=== PATIENT | male | born 1980 | race Caucasian/White ===

== ENCOUNTER 2021-12-10 01:09 | Emergency (ER) | payer OTHER, SELFPAY ==
[2021-12-10] VITALS (20 sets, daily range): BP systolic 93–123; BP diastolic 54–82; PULSE 57–90; RESP 16–26; TEMP 36.9–37.1; O2SAT 94–98; BMI 26.7
--- NOTE | 2021-12-10 01:14 | HMH.EDGENADL ---
Discharge Plan Disposition Patient Disposition: Xfer Psychiatric Hosp Condition: Fair Prescriptions Prescriptions: No Action olanzapine 10 mg Tablet 10 mg PO HS Clinical Impressions Clinical Impression: Deliberate medication overdose, Paranoid schizophrenia Discharge ED Provider: Cydney Santos Adult HPI General Chief complaint: Overdose Stated complaint: OD Time Seen by Provider: 12/10/21 01:12 Mode of Arrival: EMS Source of Information: Patient Limitations: No Limitations Description of Symptoms (Recalled from ER Triage Doc. by RN): Pt reports ingesting about 10 10mg olanzapine aprox 40 min ago. Pt denies thoughts of harming himself or others. He took the medication because he wanted the voices in my head to stop so I could go to sleep. Pt is plesent and cooperative at this time. No complaints other than he says he is starting to get a little sleepy. History of Present Illness HPI narrative: 41-year-old male presenting to the emergency department after medication ingestion. He has a history of bipolar disorder, schizophrenia. He takes 10 mg olanzapine once daily. For the past 4 to 5 days he has had increasing intrusive thoughts. Says he hears voices all of the time. They do not tell him to do things. They do not tell him to hurt himself. They do keep him up at night. He says he simply wanted to fall asleep tonight. Took 10 tablets of his 10 mg Zyprexa. He denies that this was an attempt to end his life or to harm himself. Says he simply needed to fall asleep. Denies coingestions with alcohol, other medications, other drugs. He has been hospitalized before for mental health. Says his medication just is not working for him at this time Related Data Home Medications Medication Instructions Recorded Confirmed olanzapine 10 mg tablet 10 mg PO HS Schizophrenia 12/10/21 12/10/21 Allergies Allergy/AdvReac Type Severity Reaction Status Date / Time No Known Allergies Allergy Unverified 02/03/17 15:16 [facility] Medical History (Updated 12/10/21 @ 03:14 by Cydney Santos DO) Bipolar 1 disorder Schizo affective schizophrenia Social History Smoking Status: Current every day smoker alcohol intake: never current occupational status: employed Travel in the last 8 weeks: None ROS Obtained: Yes All systems reviewed & no additional complaints except as documented Constitutional Constitutional: Denies fever(s) and Denies headache(s) Eyes Eyes: Denies blurry vision and Denies change in vision ENT Ears, Nose, Mouth, and Throat: Denies dizziness, Denies dry mouth and Denies headache(s) Cardiovascular Cardiovascular: Denies chest pain, Denies dyspnea and Denies palpitations Respiratory Respiratory: Denies cough and Denies dyspnea Gastrointestinal Gastrointestingal: Denies nausea or vomiting Musculoskeletal Musculoskeletal: Denies muscle weakness and Denies myalgias Integumentary/Breasts Skin/Breast: Denies redness and Denies rash Neurologic Neurologic: Denies dizziness and Denies headache(s) Endocrine Endocrine: Denies palpitations Physical Exam General General appearance: alert and in no apparent distress Head Head exam: atraumatic and normocephalic Eye Eye exam: Present normal appearance; Absent conjunctival redness ENT ENT exam: Present normal exam and normal oropharynx Respiratory Respiratory exam: Present normal lung sounds bilaterally; Absent respiratory distress or wheezes Cardiovascular Cardiovascular exam: Present regular rate and normal rhythm Abdominal Exam Abdominal exam: Present soft; Absent tenderness Neurological Exam Neurological exam: Present alert and oriented X3 Psychiatric Psychiatric exam: Present normal mood and flat affect Skin Skin exam: Present warm and dry Medical Decision Making Medical Records Medical records reviewed: Yes I reviewed the patient's medical records. [place] Inquiry Pt receiving controlled substance: No Vital Signs:
--- NOTE | 2021-12-10 01:17 | ECG_ITS ---
APPROVED REPORT Exam: Resting ECG HR:82 bpm ECG Measurements Heart Rate 82 AXES TX 140 P 53 QRSd 102 QRS 64 QT 360 T 48 QTc 398 Conclusion SINUS RHYTHM INCOMPLETE RIGHT BUNDLE BRANCH BLOCK [90+ ms QRS DURATION, TERMINAL R IN V1/V2, 40+ ms S IN I/aVL/V4/V5/V6] BORDERLINE ECG UNCONFIRMED REPORT Electronically signed by : Aguilar Morales MD 12/10/2021 20:03:05
--- NOTE | 2021-12-10 01:19 | PC.NURSE ---
Patient states that at approx 0000 patient took ten 10mg olanzapine. States that he took the medicine to quiet the voices in his head because he wanted to get some sleep but denies wanting to kill or hurt himself. At 0007 patients girlfriend (he and his girlfriend live in his mothers basement) ran upstairs and told his mother that he had taken his entire bottle of pills. Patients mother called poison control who recommended she call ems. I Called and spoke with Brooklynn at poison control upon patient arrival. Per Brooklynn, since it has been greater than 1 hour since he had ingested the pills, charcoal was not beneficial. She also recommended doing basic labs for overdose protocol including an aspirin and tylenol level. Advised to monitor patient for dizziness, tachycardia, nausea/vomiting and orthostatic hypotension for the next 6 hours.
--- NOTE | 2021-12-10 01:29 | PC.NURSE ---
Pt provided with warm blanket and pillow
[2021-12-10 01:58] LABS: Microscopic, Urine URINE MICROSCOPIC (MICROSCOPIC)
[2021-12-10 02:04] LABS: Coronavirus 19, PCR Not Detected (NotDetected); Influenza A, PCR Not Detected (NotDetected); Influenza B, PCR Not Detected (NotDetected)
[2021-12-10 02:04] LABS: Basophils # 0.1 K/mm3 (0-0.2); Basophils % 1.4 % (0.1-2.0); Eosinophils # 0.1 K/mm3 (0.0-0.4); Eosinophils % 2.1 % (0.1-12.0); Hematocrit 47.1 % (42.0-52.0); Hemoglobin 15.7 g/dL (14.1-18.0); Lymphocytes # 1.9 K/mm3 (0.7-4.5); Lymphocytes % 38.4 % (10-50); Mean Corpuscular HGB Conc 33.3 g/dL (31.8-35.4); Mean Corpuscular Hemoglobin 30.8 pg (27.0-31.2); Mean Corpuscular Volume 92.7 fl (80-94); Monocytes # 0.3 K/mm3 (0.1-1.0); Monocytes % 6.5 % (1.7-9.3); Neutrophils # 2.6 K/mm3 (1.8-7.8); Neutrophils % 51.6 % (37.0-80.0); Platelet Count 265 K/mm3 (142-424); Red Blood Count 5.08 M/mm3 (4.60-6.20); Red Cell Distribution Width 15.2 % (11.5-17.5)
[2021-12-10 02:07] LABS: Appearance,Urine CLEAR (Clear); Bilirubin,Urine Negative (Negative); Blood, Urine TRACE-L (Negative); Color,Urine YELLOW (Yellow); Glucose,Urine (UA) Negative (Negative); Ketones,Urine Negative (Negative); Leukocyte Esterase,Urine Negative (Negative); Nitrate,Urine Negative (Negative); Protein,Urine Negative (Negative); Urobilinogen,Urine 0.2 EU/dl (0.2)
[2021-12-10 02:09] LABS: Acetaminophen < 10 ug/ml (10-30); Alanine Aminotransferase 18 U/L (12-78); Albumin Level 3.9 g/dl (3.5-5.0); Albumin/Globulin Ratio 1.1 (1.1-1.8); Alkaline Phosphatase 120 U/L (38-126); Anion Gap 13.9 mEq/L (5-15); Aspartate Amino Transferase 28 U/L (17-59); Bilirubin,Total 0.3 mg/dl (0.2-1.3); Blood Urea Nitrogen 12 mg/dl (9-20); Calcium 8.7 mg/dl (8.4-10.2); Carbon Dioxide 26 mmol/L (22.0-30.0); Chloride 103 mmol/L (98-107); Creatinine Clearance Estimated 154 mL/min (50-200); Estimated Glomerular Filt Rate 93 ml/min (>60); GFR (African American) 113 ML/MIN (>60); Globulin 3.5 g/dL (1.3-3.2); Glucose 125 mg/dl (74-100); Potassium 3.9 mmoL/L (3.5-5.1); Salicylate < 1.0 mg/dL (2.0-20.0); Sodium 139 mmol/L (136-145); Total Protein,Serum 7.4 g/dl (6.3-8.2)
[2021-12-10 02:10] LABS: Ethyl Alcohol < 10 mg/dl (0-10)
--- NOTE | 2021-12-10 02:30 | PC.NURSE ---
Pt continues to sleep. No needs or complaints voiced. Call light within reach.
[2021-12-10 02:33] LABS: WBC,Urine Occasional #/hpf (0-3)
[2021-12-10 02:34] LABS: Bacteria,Urine 1+ /lpf
[2021-12-10 02:48] LABS: Barbiturates Screen,Urine Negative ng/ml (<200)
[2021-12-10 02:49] LABS: Benzodiazepines Screen,Urine Negative ng/ml (<200)
[2021-12-10 02:50] LABS: Cocaine Screen,Urine Negative ng/ml (<300)
[2021-12-10 02:51] LABS: Cannabinoid Screen,Urine Negative ng/ml (<50); Methadone Screen,Urine Negative ng/ml (<300)
[2021-12-10 02:53] LABS: Opiate Screen,Urine Negative ng/ml (<300); Phencyclidine Screen,Urine Negative ng/ml (<25)
--- NOTE | 2021-12-10 03:52 | PC.NURSE ---
Spoke with Brooklynn with poison control to update her on patients condition. Patient is currently sleeping. Does not complain of any pain. Patient has not had any seizures while here and has remained hemodynamically stable. Will continue to monitor patient.
--- NOTE | 2021-12-10 04:12 | PC.NURSE ---
Breakfast tray request submitted
--- NOTE | 2021-12-10 05:14 | PC.NURSE ---
Pt sleeping comfortably at this time
--- NOTE | 2021-12-10 06:34 | PC.NURSE ---
Pt continues to rest in bed comfortably
--- NOTE | 2021-12-10 06:59 | PC.NURSE ---
Breakfast tray provided
--- NOTE | 2021-12-10 08:08 | PC.NURSE ---
called [facility] intake states they will have a nurse call for pt eval
--- NOTE | 2021-12-10 08:13 | PC.NURSE ---
spoke with sharon at [facility] that reports if pt is voluntary, he can present to their facility for eval.
--- NOTE | 2021-12-10 08:25 | PC.NURSE ---
called care management to arrange transport for pt
--- NOTE | 2021-12-10 08:35 | PC.NURSE ---
care management recommends psych consult. states they are unable to find transport for pt.
--- NOTE | 2021-12-10 08:37 | PC.NURSE ---
spoke with prasanna in who states she will let vielka know about consult
--- NOTE | 2021-12-10 08:42 | PC.NURSE ---
Poison Control called and was updated on pt condition.
--- NOTE | 2021-12-10 09:15 | PC.NURSE ---
spoke with pt's mother who states she will transport pt to [facility]
--- NOTE | 2021-12-10 10:35 | PC.NURSE ---
awaiting pick pt for pt d/c. pt updated on POC. resting at this time
[2021-12-16 09:11] LABS: Amphetamine Positive (.); Amphetamine (GC/MS) 2223 ng/mL (Cutoff=500); Amphetamines Positive (.); Methamphetamine Positive (.); Methamphetamine (GC/MS) >3000 ng/mL (Cutoff=500)
== END 2021-12-10 12:03 ==
PROVIDERS: Emergency Provider Emergency Medicine
DX: T43.591A Poisoning by other antipsychotics and neuroleptics, accidental (unintentional), initial encounter (principal); F06.2 Psychotic disorder with delusions due to known physiological condition; F20.89 Other schizophrenia
CPT/HCPCS: 80053; 80305; 80324; 80329; 81001; 85025; 93005; 99283; C9803; U0003; U0005

== ENCOUNTER → 2022-02-14 13:03 | Outpatient (CLI) | payer OTHER, SELFPAY ==
[2022-02-14 18:58] LABS: Alanine Aminotransferase 21 U/L (12-78); Albumin Level 4.8 g/dl (3.5-5.0); Albumin/Globulin Ratio 1.5 (1.1-1.8); Alkaline Phosphatase 92 U/L (38-126); Anion Gap 13.7 mEq/L (5-15); Aspartate Amino Transferase 29 U/L (17-59); Bilirubin,Total 0.7 mg/dl (0.2-1.3); Blood Urea Nitrogen 19 mg/dl (9-20); Calcium 9.4 mg/dl (8.4-10.2); Carbon Dioxide 24 mmol/L (22.0-30.0); Chloride 108 mmol/L (98-107); Estimated Glomerular Filt Rate 83 ml/min (>60); GFR (African American) 100 ML/MIN (>60); Globulin 3.3 g/dL (1.3-3.2); Glucose 88 mg/dl (74-100); Potassium 4.7 mmoL/L (3.5-5.1); Sodium 141 mmol/L (136-145); Total Protein,Serum 8.1 g/dl (6.3-8.2)
[2022-02-14 19:29] LABS: Thyroid Stimulating Hormone 1.11 uIU/mL (0.465-4.68)
[2022-02-14 19:32] LABS: Basophils # 0.1 K/mm3 (0-0.2); Eosinophils # 0.1 K/mm3 (0.0-0.4); Eosinophils % 1.5 % (0.1-12.0); Hematocrit 49.2 % (42.0-52.0); Hemoglobin 16.6 g/dL (14.1-18.0); Lymphocytes # 1.8 K/mm3 (0.7-4.5); Lymphocytes % 38.1 % (10-50); Mean Corpuscular HGB Conc 33.7 g/dL (31.8-35.4); Mean Corpuscular Hemoglobin 31.1 pg (27.0-31.2); Mean Corpuscular Volume 92.2 fl (80-94); Mean Platelet Volume 8.7 fl (7.4-10.4); Monocytes # 0.4 K/mm3 (0.1-1.0); Monocytes % 8.2 % (1.7-9.3); Neutrophils # 2.5 K/mm3 (1.8-7.8); Neutrophils % 51.2 % (37.0-80.0); Platelet Count 296 K/mm3 (142-424); Red Blood Count 5.33 M/mm3 (4.60-6.20); White Blood Count 4.8 K/mm3 (4.8-10.8)
[2022-02-14 19:48] LABS: Vitamin B12 395 pg/mL (239-931)
== END ==
PROVIDERS: PCP Family Medicine; Visit Provider Family Medicine
DX: F20.0 Paranoid schizophrenia (principal)
CPT/HCPCS: 80053; 82607; 84443; 85025

== ENCOUNTER 2023-11-26 17:35 | Emergency (ER) | payer BC, SELFPAY ==
[2023-11-26 17:36] VITALS: BP 133/102; PULSE 114; RESP 18; TEMP 36.8; O2SAT 97; BMI 34.0
--- NOTE | 2023-11-26 17:39 | HMH.EDGENADL ---
Discharge Plan Disposition Patient Disposition: Eloped Chief Complaint: Psychiatric Symptoms Prescriptions Prescriptions: No Action risperidone 2 mg tablet 2 mg PO BID Qty: 180 2RF divalproex 250 mg tablet,delayed release (DR/EC) See Rx Instructions .ROUTE .COMPLEX Qty: 180 1RF Dose Instruction: TAKE 1 TABLET BY MOUTH TWICE A DAY Rx Instructions: TAKE 1 TABLET BY MOUTH TWICE A DAY divalproex 500 mg tablet,delayed release (DR/EC) See Rx Instructions .ROUTE .COMPLEX Qty: 180 1RF Dose Instruction: TAKE 1 TABLET BY MOUTH TWICE A DAY FOR SCHIZOPHRENIA Rx Instructions: TAKE 1 TABLET BY MOUTH TWICE A DAY FOR SCHIZOPHRENIA Referrals Follow up/Referrals: Kaelyn Tobar MD [Primary Care Provider] - See instructions Clinical Impressions Clinical Impression: Paranoid schizophrenia Print Language Print Language: Maltese Discharge ED Provider: Hiram Maynard General Adult HPI General Chief complaint: Psychiatric Symptoms Stated complaint: hearing voices Time Seen by Provider: 11/26/23 17:39 History of Present Illness HPI narrative: Aguilar Zimmerman is a 43y male with a history of schizophrenia who presents to the emergency department for complaints of hearing voices and is requesting a scan because he is concerned that he has been microchipped. Patient states that he lost his job and lost his insurance approximately 1 month ago and has been out of all of his psychiatric medications. He is unsure exactly what he takes, but notes that he takes risperidone. He states that recently, he feels that someone has microchip him and he has been hearing voices. He states that these voices are often times people that he knows. He denies any suicidal ideation or homicidal ideation. He is requesting scans to evaluate for a microchip. Mother at the bedside, whom he lives with, notes that he had a stay at [facility] and was put on medication at that time that seemed to help his agitation associated with his schizophrenia. Patient is adamant that he does not want to go to [facility] and is only here for a scan to evaluate for the microchip. He does not want any lab work or urine studies performed. He is alert and oriented x 3. He denies alcohol use and occasionally admits to smoking marijuana, however has not used in some time. Related Data Previous Rx's ?Medication ?Instructions ?Recorded risperidone 2 mg tablet 2 mg PO BID #180 tabs 11/07/22 divalproex 250 mg tablet,delayed See Rx Instructions .Route 11/10/22 release .COMPLEX #180 tabs divalproex 500 mg tablet,delayed See Rx Instructions .Route 11/10/22 release .COMPLEX #180 tabs Allergies Allergy/AdvReac Type Severity Reaction Status Date / Time No Known Allergies Allergy Unverified 02/14/22 11:45 [facility] Disclaimer: The information contained in this section may have been updated after the patient was seen, as this information can be updated by other users. Medical History (Updated 11/26/23 @ 18:20 by Hiram Maynard MD) Left ankle effusion Schizo affective schizophrenia Bipolar 1 disorder Surgical History (Updated 02/14/22 @ 11:59 by MELODY Harris) History of left hip replacement Social History Smoking Status: Current every day smoker alcohol intake: never current occupational status: employed Travel in the last 8 weeks: None ROS Obtained: Yes Systems reviewed as appropriate & no additional complaints except as documented Physical Exam General General appearance: alert and in no apparent distress Head Head exam: atraumatic Eye Eye exam: Present normal appearance ENT ENT exam: Present normal external ear exam Neck Neck exam: Present full ROM Chest Chest inspection: Present symmetric chest wall rise Respiratory Respiratory exam: Present normal lung sounds bilaterally; Absent respiratory distress Cardiovascular Cardiovascular exam: Present normal rhythm and tachycardia Abdominal Exam Abdominal exam: Present soft; Absent tenderness or guarding exam: Present deferred Extremities Exam Extremities exam: Present normal inspection Back Exam Back exam: Present normal inspection Neurological Exam Neurological exam: Present alert and oriented X3 Psychiatric Psychiatric exam: Present agitated and anxious; Absent homicidal ideation or suicidal ideation Expanded Psychiatric Exam Expanded psych exam: Present paranoid and auditory hallucinations Skin Skin exam: Present warm and dry Medical Decision Making Medical Records Medical records reviewed: Yes I reviewed the patient's medical records. Screening: Per USPSTF and CDC recommendations, given the prevalence of disease in our region, it is our hospital?s policy to screen for HIV and viral Hepatitis for all patients aged 18 and over and those with ongoing risk factors. [place] Inquiry Pt receiving controlled substance: No Vital Signs: 11/26/23 17:36 Temperature 98.2 F Temperature Source Oral Pulse Rate [Radial] 114 H Respiratory Rate 18 Blood Pressure [Right Arm] 133/102 H Blood Pressure Mean [Right Arm] 112 Blood Pressure Source [Right Arm] Automatic Cuff Blood Pressure Position [Right Arm] Sitting 02 Sat by Pulse Oximetry 97 Oxygen Delivery Method Room Air Orders (Tests/Meds): ORDERS Category Date Time Status HIV (1&2) Antibody Rapid Stat Lab 11/26/23 17:57 Ordered Hep C Ab with Reflex to RNA Stat Lab 11/26/23 17:57 Ordered Medical Decision Narrative: This is a 43-year-old male with longstanding schizophrenia who, on chart review, was last seen by Dr. Tobar in 2021 and was prescribed risperidone and Dalproex, who presents to the emergency department for complaints of auditory hallucinations and concerns that he has microchip. Patient notes that he lost his job approximately 1 month ago and lost his insurance as a result. Since then, has not had any of his psychiatric medications and has not seen a physician in some time. He notes that he had a stay at [facility] in the past and was prescribed these medications that seem to help. His mother at the bedside notes improvement in his symptoms at that time as well. Patient is alert and oriented x 3, not responding to internal stimuli, denying suicidal ideation or homicidal ideation, afebrile, mildly tachycardic but is agitated and is demanding a scan to evaluate for microchips. Given that the patient is completely alert and oriented and answering questions appropriately without suicidal ideation or homicidal ideation, the patient has medical decision-making capacity for himself and does not qualify for a 72-hour hold at this time. He is refusing all lab work and urine studies at this time. It was discussed with him that there is no indication for scan at this time based on his symptomatology, vital signs, which are most consistent with his longstanding schizophrenia. Is felt that he would benefit from getting back on his medications, which previously controlled his symptoms well according to family. He was given a Medicaid application upon arrival to the emergency department, which should help with the cost aspect. When offered inpatient stay at [facility], patient stated I will not be going there and subsequently left the emergency department. The risks of leaving the emergency department prior to completion of his workup/transfer to [facility] were not able to be discussed with the patient prior to his exit from the emergency department and the patient eloped as a result. Critical Care Critical Care Time Critical Care Time: No
--- NOTE | 2023-11-26 17:53 | PC.NURSE ---
DR URIARTE AT BEDSIDE
--- NOTE | 2023-11-26 17:57 | PC.NURSE ---
PT REFUSING LABS AND EKG DEMANDING A SCAN OR HE WILL LEAVE
--- NOTE | 2023-11-26 18:02 | PC.NURSE ---
MOTHER AT BEDSIDE ALONG WITH DR URIARTE
[2023-11-26 18:09] VITALS: BP 133/102; PULSE 110; RESP 18; TEMP 36.8; O2SAT 97
== END 2023-11-26 18:09 | disposition left against medical advice (07) ==
PROVIDERS: Emergency Provider Student in an Organized Health Care Education/Training Program; PCP Family Medicine
DX: F20.0 Paranoid schizophrenia (principal); F09 Unspecified mental disorder due to known physiological condition; Z53.21 Procedure and treatment not carried out due to patient leaving prior to being seen by health care provider
CPT/HCPCS: 99281

== ENCOUNTER 2023-12-23 11:28 | Outpatient (CLI) | payer BC, SELFPAY ==
--- NOTE | 2023-12-23 11:33 | CT_ITS ---
FINAL REPORT CLINICAL HISTORY: abdominal hernia COMPARISON: None FINDINGS: CT OF THE ABDOMEN AND PELVIS WITH CONTRAST Axial CT images of the abdomen and pelvis were obtained after the administration of IV contrast. Coronal reformatted images were also obtained and reviewed.This study was performed with techniques to keep radiation doses as low as reasonably achievable (ALARA). Individualized dose reduction techniques using automated exposure control or adjustment of mA and/or kV according to the patient''s size were employed. Abdomen: There is mild atelectasis or scarring in the lung bases. The heart is normal in size. The liver has an unremarkable appearance, without evidence of mass or biliary ductal dilatation. There is mild nonspecific gallbladder wall thickening. The spleen is unremarkable. No adrenal mass is present. The pancreas has an unremarkable appearance. The kidneys are normal, without evidence of mass or hydronephrosis. The aorta is normal in caliber. There is no free fluid or adenopathy. No mass or abnormal fluid collection is seen. A supraumbilical midline ventral hernia is noted containing nonobstructed small bowel loops. The hernia orifice measures 39 mm in transverse dimension in the hernia sac measures 66 mm in transverse dimension. Pelvis: The appendix is normal. The urinary bladder is unremarkable. No inflammatory process is seen. There is no evidence of mass or adenopathy. There is no evidence of bowel obstruction. Postoperative changes from left hip arthroplasty. IMPRESSION: Supraumbilical midline ventral hernia containing nonobstructive small bowel loops. Reviewed, Interpreted and Dictated by Winston Cleaning III, MD Transcribed by Barbara Mcclellan Authenticated and [facility]
[2023-12-23] MEDS: SODIUM CHLORIDE 0.9% 10ML SYR (RAD ONLY) 10 ML IV (12:29)
[2023-12-23] MEDS: IOPAMIDOL-370 (76%);100ML BOTTLE 75 ML IV (12:30)
== END 2023-12-23 23:59 | disposition home or self-care (01) ==
LOC: RAD 11:29
PROVIDERS: PCP Family Medicine; Visit Provider Nurse Practitioner
DX: K43.9 Ventral hernia without obstruction or gangrene (principal)
CPT/HCPCS: 74177; Q9967

== ENCOUNTER 2024-01-15 12:12 | Outpatient (CLI) | payer BC, SELFPAY ==
[2024-01-15 12:34] VITALS: BMI 34.7
[2024-01-15 12:52] LABS: Basophils % 0.6 % (0.1-2.0); Eosinophils # 0.1 K/mm3 (0.0-0.4); Eosinophils % 1.4 % (0.1-12.0); Hematocrit 41.8 % (42.0-52.0); Hemoglobin 14.7 g/dL (14.1-18.0); Lymphocytes # 1.6 K/mm3 (0.7-4.5); Lymphocytes % 33.8 % (10-50); Mean Corpuscular HGB Conc 35.3 g/dL (31.8-35.4); Mean Corpuscular Hemoglobin 32.2 pg (27.0-31.2); Mean Corpuscular Volume 91.4 fl (80-94); Mean Platelet Volume 7.8 fl (7.4-10.4); Monocytes # 0.3 K/mm3 (0.1-1.0); Monocytes % 7.2 % (1.7-9.3); Neutrophils # 2.6 K/mm3 (1.8-7.8); Neutrophils % 57.1 % (37.0-80.0); Platelet Count 242 K/mm3 (142-424); Red Blood Count 4.57 M/mm3 (4.60-6.20); Red Cell Distribution Width 13.8 % (11.5-17.5); White Blood Count 4.6 K/mm3 (4.8-10.8)
[2024-01-15 12:58] LABS: Microscopic, Urine URINE MICROSCOPIC (MICROSCOPIC)
[2024-01-15 13:13] LABS: Appearance,Urine CLEAR (Clear); Bilirubin,Urine Negative (Negative); Blood, Urine Negative (Negative); Color,Urine YELLOW (Yellow); Glucose,Urine (UA) Negative (Negative); Ketones,Urine Negative (Negative); Leukocyte Esterase,Urine Negative (Negative); Nitrate,Urine Negative (Negative); PH,Urine 6.5 (5.0-8.5); Protein,Urine Negative (Negative); Specific Gravity, Urine 1.025 (1.005-1.030); Urobilinogen,Urine 0.2 EU/dl (0.2)
[2024-01-15 13:15] LABS: Anion Gap 9.9 mEq/L (5-15); Blood Urea Nitrogen 13 mg/dl (9-20); Calcium 9.2 mg/dl (8.4-10.2); Carbon Dioxide 23 mmol/L (22.0-30.0); Chloride 107 mmol/L (98-107); Creatinine Clearance Estimated 176 mL/min (50-200); Estimated Glomerular Filt Rate 82 ml/min (>60); GFR (African American) 99 ML/MIN (>60); Glucose 111 mg/dl (74-100); Potassium 3.9 mmoL/L (3.5-5.1); Sodium 136 mmol/L (136-145)
[2024-01-15 13:21] LABS: Squamous Epithelial Cell,Urine Occasional #/hpf (0-5); WBC,Urine Occasional #/hpf (0-3)
--- NOTE | 2024-01-15 13:46 | ECG_ITS ---
APPROVED REPORT Exam: Resting ECG HR:86 bpm ECG Measurements Heart Rate 86 AXES VA 161 P 42 QRSd 109 QRS 26 QT 344 T 56 QTc 388 Conclusion SINUS RHYTHM NORMAL ECG UNCONFIRMED REPORT Electronically signed by : Aguilar Morales MD 01/17/2024 11:18:16
== END 2024-01-15 23:59 | disposition home or self-care (01) ==
LOC: PREOP 12:13
PROVIDERS: PCP Family Medicine; Visit Provider Surgery
DX: Z01.810 Encounter for preprocedural cardiovascular examination (principal)
CPT/HCPCS: 80048; 81001; 85025; 93005

== ENCOUNTER 2024-01-21 07:58 | Day surgery (SDC) | payer BC, SELFPAY ==
[2024-01-15 12:33] VITALS: BMI 34.7
[2024-01-21] VITALS (12 sets, daily range): BP systolic 108–143; BP diastolic 61–94; PULSE 70–98; RESP 16–18; TEMP 36.1–43; O2SAT 93–96
[2024-01-21] MEDS: 0.9 % SODIUM CHLORIDE 1000ML 1,000 ML 25 ML IV (08:13)
--- NOTE | 2024-01-21 08:27 | P.PNANES_ITS ---
[facility] Disclaimer: The information contained in this section may have been updated after the patient was seen, as this information can be updated by other users. Medical History Ventral hernia Supraumbilical defect with indistinct margin Left ankle effusion Schizo affective schizophrenia Bipolar 1 disorder Surgical History History of left hip replacement Social History Smoking Status: Current every day smoker alcohol intake: never substance use type: former substance user and methamphetamine current occupational status: employed Travel in the last 8 weeks: None [facility] Anesthesia Checklist Patient Identification Patient Identification: Arm Band and Verbal (Name & ) Structural Data Admitted From: Home Planned Operative Procedure/s: Lap. VHR Consent for Planned Operative Procedure(s) Verified: Yes Verified Documents: Surgical Consent and History and Physical NPO Status Verified Time NPO: 23:00 Chart Verification Results Verified: CBC, BMP and ECG Additional verifications Patient : No Anesthesia Reactions: No Hx Blood Transfusions: No Blood Transfusion Reaction: No Cardiovascular Assessment Heart Sounds: S1 & S2 Pulse Rhythm: Irregular Peripheral Edema: No Airway Assessment Mallampati Score:: Class II C-Spine Mobility Assessed: Yes (FROM) TMJ Mobility Assessed: Yes Dentition: Good Dentition (Nothing loose per pt.) Neurological Assessment Level of Consciousness: Awake, Alert, Appropriate and Follows Commands Hx Seizures: No Numbness or tingling in extremities: No Anesthesia Plan Anesthesia Risk discussed: Yes Anesthesia Plan: Verified ASA Class: III Anesthesia Type: General
[2024-01-21] MEDS: CEFAZOLIN SODIUM 2 GM in 0.9 % SODIUM CHLORIDE 100 ML IV (08:50)
[2024-01-21] MEDS: LIDOCAINE 1% 20ML MDV 20 ML (08:59)
--- NOTE | 2024-01-21 10:28 | P.OP_ITS ---
Date of procedure: 01/21/24 Pre-op Diagnosis:: Ventral supraumbilical hernia (4 cm) Post-op Diagnosis:: Same Procedure performed:: Laparoscopic-assisted open repair of ventral hernia (4 cm) utilizing Ventralex mesh Surgeon:: Kenneth Connor MD [employer]SEL[employer]:: Kaila Fergusonnoemy Anesthesia: GETA Estimated blood loss (mL): 15 Operative findings:: 4 cm defect 8 cm Ventralex mesh secured in underlay fashion Primary repair with 0 Ethibond completed over the Ventralex mesh Operative note:: After informed consent was obtained the patient was taken to the operating room and placed in the supine position. General anesthesia was induced and his abdomen was prepped and draped in a sterile fashion. After infiltration with local anesthetic a Veress needle was placed in the left upper quadrant. The abdomen was insufflated. A 5 mm trocar was utilized to enter the left mid flank. Visualization revealed a supraumbilical defect 4 cm in diameter with no incarcerated contents. An incision overlying the defect was completed with sc alpel. The underlying hernia sac was freed from surrounding tissue and transected with electrocautery. The hernia sac was passed off for pathologic evaluation. An 8 cm Ventralex mesh was secured in an underlay fashion to the margin of the hernia. The margin of the Ventralex was then secured with OPTi fix tacks. An additional 5 mm trocar was placed in the left upper quadrant and an additional 5 mm trocar was placed along the right flank to facilitate placement of the tacks. Pneumoperitoneum was released. The fascia was then reapproximated to complete a primary repair with interrupted 0 Ethibond. All wounds were irrigated and skin was reapproximated with 4-0 Monocryl in an interrupted mattress fashion to facilitate hemostasis. Dressings were applied and the patient was transferred to recovery in stable condition after extubation. Condition: stable Disposition: PACU Specimens:: Ventral hernia sac Complications:: No immediate
--- NOTE | 2024-01-21 10:40 | EXP.ANES.I ---
[facility] Anesthesia Record Part I Anesthesia Record I Intake, IV Amount: 1,500 Hydration: Adequate Estimated blood loss (mL): 25 Urine output (mL): 0 Blood Products used (#): none Blood Pressure: 135/88 SaO2: 93 Pulse Rate: 83 Airway Patency: Patent Respiratory Rate: 16 Temperature: 97.1 F Patient is:: Awake (Talking), Drowsy and Stable Stable to PACU at:: 10:38
[2024-01-21] MEDS: MEPERIDINE 25MG/ML 1ML SYRINGE 25 MG IV (10:45)
[2024-01-21] MEDS: MORPHINE 2MG/ML SYRINGE 2 MG IV ×2 (10:47→11:02)
[2024-01-21] MEDS: OXYCODONE 5MG W/APAP 325MG TABLET 1 EACH (11:33)
--- NOTE | 2024-01-21 12:55 | EXP.ANES.II ---
[facility] Anesthesia Record Part II Anesthesia Record Part II Discharge Time: 11:07 Destination: Surgical Day Care (OP Surgery) PACU nurse assessment reviewed?: Yes Patient Condition:: Good Anesthesia Complications:: None Swallowing reflex intact?: Yes Airway Patency: Patent Cyanosis?: No Blood Pressure: 140/84 SaO2: 95 Respiratory Rate: 16 Pulse Rate: 70 Temperature: 97.2 F Mental Status: Alert & Oriented Pain level:: 0 Nausea and/or vomitting:: None Intake, IV Amount: 0 Hydration: Adequate
== END 2024-01-21 11:40 | disposition home or self-care (01) ==
PROVIDERS: PCP Family Medicine; Visit Provider Surgery
PROC: (CPT 49593; principal; 2024-01-21 09:15)
DX: K43.9 Ventral hernia without obstruction or gangrene (principal)
CPT/HCPCS: 49593; 96374; J3490; C1781; J0690; J1100; J1790; J1885; J2175; J2250; J2270; J3010; J7030

== ENCOUNTER 2024-03-08 12:00 | Outpatient (CLI) | payer OTHER, SELFPAY ==
[2024-03-08 18:46] LABS: Alanine Aminotransferase 29 U/L (12-78); Albumin Level 4.4 g/dl (3.5-5.0); Albumin/Globulin Ratio 1.4 (1.1-1.8); Alkaline Phosphatase 89 U/L (38-126); Anion Gap 15.1 mEq/L (5-15); Aspartate Amino Transferase 27 U/L (17-59); Bilirubin,Total 0.2 mg/dl (0.2-1.3); Blood Urea Nitrogen 14 mg/dl (9-20); Calcium 9.8 mg/dl (8.4-10.2); Carbon Dioxide 24 mmol/L (22.0-30.0); Chloride 103 mmol/L (98-107); Chol/HDL Ratio 5.9 (1-3.5); Cholesterol 217 mg/dl (140-200); Estimated Glomerular Filt Rate 82 ml/min (>60); GFR (African American) 99 ML/MIN (>60); Globulin 3.2 g/dL (1.3-3.2); Glucose 89 mg/dl (74-100); HDL Cholesterol 37 mg/dl (40-60); Potassium 4.1 mmoL/L (3.5-5.1); Sodium 138 mmol/L (136-145); Total Protein,Serum 7.6 g/dl (6.3-8.2); Triglycerides 170 mg/dl (30-150); VLDL Cholesterol 34 mg/dL (0-40)
[2024-03-08 18:58] LABS: Direct LDL Cholesterol 154.71 mg/dL (100-129)
[2024-03-08 19:04] LABS: T4 (Thyroxine) 10.4 ug/dl (5.53-11.0)
[2024-03-08 19:05] LABS: Hemoglobin A1C 5.6 % (4.0-6.0)
[2024-03-08 19:17] LABS: Thyroid Stimulating Hormone 2.35 uIU/mL (0.465-4.68)
== END 2024-03-08 23:59 | disposition home or self-care (01) ==
LOC: LAB.DROPOF 03-09 12:45
PROVIDERS: PCP Nurse Practitioner Acute Care; Visit Provider Nurse Practitioner Acute Care
DX: Z00.00 Encounter for general adult medical examination without abnormal findings (principal); I10 Essential (primary) hypertension; F20.0 Paranoid schizophrenia; R53.83 Other fatigue; E11.8 Type 2 diabetes mellitus with unspecified complications
CPT/HCPCS: 80053; 80061; 83036; 84436; 84443

== ENCOUNTER 2024-03-16 15:23 | Emergency (ER) | payer OTHER, SELFPAY ==
[2024-03-16 15:25] VITALS: BP 132/89; PULSE 97; RESP 16; TEMP 36.6; O2SAT 99; BMI 34.0
--- NOTE | 2024-03-16 15:27 | ED_ITS ---
Discharge Plan Disposition Patient Disposition: Home, Self-Care Condition: Good Prescriptions Prescriptions: No Action divalproex 250 mg tablet,delayed release (DR/EC) See Rx Instructions .ROUTE .COMPLEX Qty: 180 1RF Dose Instruction: TAKE 1 TABLET BY MOUTH TWICE A DAY Rx Instructions: TAKE 1 TABLET BY MOUTH TWICE A DAY divalproex 500 mg tablet,delayed release (DR/EC) See Rx Instructions .ROUTE .COMPLEX Qty: 180 1RF Dose Instruction: TAKE 1 TABLET BY MOUTH TWICE A DAY FOR SCHIZOPHRENIA Rx Instructions: TAKE 1 TABLET BY MOUTH TWICE A DAY FOR SCHIZOPHRENIA risperidone 2 mg tablet 2 mg PO BID Qty: 180 2RF olanzapine [Zyprexa Zydis] 5 mg tablet,disintegrating 5 mg PO DAILY Qty: 30 2RF Referrals Follow up/Referrals: Nicholas Tobar MD [Primary Care Provider] - See instructions Activity Restrictions/Add. Instructions Additional Instructions/Restrictions: Please call and follow-up with my eye doctor within 48 hours or any eye doctor of your choice within 48 hours to reevaluate your vision and the foreign body site in the left cornea. Utilize the ointment that I gave you which is erythromycin twice a day. Clinical Impressions Clinical Impression: Acute foreign body of left cornea Qualifiers: Encounter type: initial encounter Qualified Code(s): T15.02XA - Foreign body in cornea, left eye, initial encounter Instructions Patient Instructions: DI for Corneal Abrasion Print Language Print Language: [place] Discharge ED Provider: Hiram Maynard Adult HPI <ASIA Kirk - Last Filed: 03/16/24 21:30> General Chief complaint: Eye Problems Stated complaint: left eye pain , object in eye Time Seen by Provider: 03/16/24 15:26 History of Present Illness HPI narrative: Patient presents for a left eye injury. Patient states he was cutting wood on Thursday and felt like he got something in his eye. He is attempted to wash it out several times but the sensation persist. He denies loss of vision but hurts that it feels like it is scratching every time he blinks. Related Data Previous Rx's ?Medication ?Instructions ?Recorded divalproex 250 mg tablet,delayed See Rx Instructions .Route 12/08/23 release .COMPLEX #180 tabs divalproex 500 mg tablet,delayed See Rx Instructions .Route 10/22/24 release .COMPLEX #180 tabs risperidone 2 mg tablet 2 mg PO BID #180 tabs 12/08/23 olanzapine 5 mg disintegrating 5 mg PO DAILY #30 tabs 03/08/24 tablet (Zyprexa Zydis) Allergies Allergy/AdvReac Type Severity Reaction Status Date / Time No Known Allergies Allergy Verified 03/08/24 11:35 PFSH <ASIA Kirk - Last Filed: 03/16/24 21:30> PFS Disclaimer: The information contained in this section may have been updated after the patient was seen, as this information can be updated by other users. Medical History (Updated 03/16/24 @ 15:50 by ASIA Kirk) Ventral hernia Left ankle effusion Schizo affective schizophrenia Bipolar 1 disorder Surgical History H/O hernia repair History of left hip replacement Social History (Updated 03/16/24 @ 15:38 by Carla Henderson RN) Smoking Status: Current every day smoker alcohol intake: never substance use type: former substance user and methamphetamine current occupational status: employed Travel in the last 8 weeks: None Have you lived/traveled outside [place] in past 30 days?: No Contact w/someone who lives/traveled outside [place] past 30 days?: No Exposure to someone with infectious disease in past 14 days?: No Do you have a fever (greater than 100.4 F or 38 C)?: No Have you tested positive for COVID-19: No Exposed to someone with COVID-19 in past 14 days?: No Do you have a sore throat?: No Do you have a cough?: No Do you have any weakness?: No Are you experiencing any nausea/vomitting?: No Do you have any diarrhea?: No Are you experiencing any unusual bleeding?: No Do you have any muscle aches/pain?: No Do you have any abdominal pain?: No Are you experiencing loss of taste or smell?: No Other Medical History Have you received the Pneumonia Vaccine: No <ASIA Kirk - Last Filed: 03/16/24 21:30> ROS Obtained: Yes Systems reviewed as appropriate & no additional complaints except as documented Physical Exam <ASIA Kirk - Last Filed: 03/16/24 21:30> General General appearance: alert and in no apparent distress Respiratory Respiratory exam: Present normal lung sounds bilaterally Cardiovascular Cardiovascular exam: Present regular rate Neurological Exam Neurological exam: Present alert, oriented X3 and CN II-XII intact Medical Decision Making <ASIA Kirk - Last Filed: 03/16/24 21:30> Medical Records Screening: Per USPSTF and CDC recommendations, given the prevalence of disease in our region, it is our hospital?s policy to screen for HIV and viral Hepatitis for all patients aged 18 and over and those with ongoing risk factors. [place] Inquiry Pt receiving controlled substance: No Vital Signs: 03/16/24 15:25 03/16/24 15:57 Temperature 97.9 F 98.2 F Temperature Source Oral Pulse Rate 70 Pulse Rate [Radial] 97 H Respiratory Rate 16 20 Blood Pressure 132/89 Blood Pressure [Right Arm] 132/89 Blood Pressure Mean [Right Arm] 103 Blood Pressure Source [Right Arm] Automatic Cuff Blood Pressure Position [Right Arm] Sitting 02 Sat by Pulse Oximetry 99 Oxygen Delivery Method Room Air Room Air Medical Decision Narrative: In summary patient is a 43-year-old male who presents to the emergency department for evaluation of foreign body to the left eye. Patient is hemodynamically stable upon arrival, afebrile. Physical exam is remarkable for hyperemia of the conjunctive of the left eye without evidence of purulence. There is a visible foreign body at approximately the 9 o'clock position of the cornea. No evidence of ulceration currently.. Differential diagnosis includes foreign body versus rust ring versus corneal ulceration. Initial workup will be conducted with exam under topical anesthesia.. Initial interventions include topical anesthesia. Initial workup reviewed by me and after tetracaine applied fluorescein dye was applied and patient was examined under UV light. Patient does have pooling around the foreign body at the 9 o'clock position. No other fluorescein pooling noted. No other foreign body noted.. The foreign body was lifted with the bevel of an 18-gauge needle. The visible rust ring was also removed with the bevel of the 18-gauge needle. Fluorescein reapplied and there is no current pooling of the dye. Erythromycin ointment was applied by myself. Given this patient is appropriate for discharge with follow-up within 48 hours with an eye doctor for reexamination. Patient instructed to use the erythromycin ointment twice a day. He was given strict return precautions for loss of vision change in vision increasing headache etc. <Hiram Maynard MD - Last Filed: 03/17/24 04:21> Vital Signs: 03/16/24 15:25 03/16/24 15:57 Temperature 97.9 F 98.2 F Temperature Source Oral Pulse Rate 70 Pulse Rate [Radial] 97 H Respiratory Rate 16 20 Blood Pressure 132/89 Blood Pressure [Right Arm] 132/89 Blood Pressure Mean [Right Arm] 103 Blood Pressure Source [Right Arm] Automatic Cuff Blood Pressure Position [Right Arm] Sitting 02 Sat by Pulse Oximetry 99 Oxygen Delivery Method Room Air Room Air Medical Decision Narrative: In summary patient is a 43-year-old male who presents to the emergency department for evaluation of foreign body to the left eye. Patient is hemodynamically stable upon arrival, afebrile. Physical exam is remarkable for hyperemia of the conjunctive of the left eye without evidence of purulence. There is a visible foreign body at approximately the 9 o'clock position of the cornea. No evidence of ulceration currently.. Differential diagnosis includes foreign body versus rust ring versus corneal ulceration. Initial workup will be conducted with exam under topical anesthesia.. Initial interventions include topical anesthesia. Initial workup reviewed by me and after tetracaine applied fluorescein dye was applied and patient was examined under UV light. Patient does have pooling around the foreign body at the 9 o'clock position. No other fluorescein pooling noted. No other foreign body noted.. The foreign body was lifted with the bevel of an 18-gauge needle. The visible rust ring was also removed with the bevel of the 18-gauge needle. Fluorescein reapplied and there is no current pooling of the dye. Erythromycin ointment was applied by myself. Given this patient is appropriate for discharge with follow-up within 48 hours with an eye doctor for reexamination. Patient instructed to use the erythromycin ointment twice a day. He was given strict return precautions for loss of vision change in vision increasing headache etc. I was consulted by the TONY, and we discussed the complexity of the problems being addressed. I approve the treatment and management plan for this patient's care in the emergency department, thus performing a substantive portion of the medical decision making. Hiram Maynard MD Critical Care <ASIA Kirk - Last Filed: 03/16/24 21:30> Critical Care Time Critical Care Time: No
[2024-03-16 15:57] VITALS: BP 132/89; PULSE 70; RESP 20; TEMP 36.8; O2SAT 98
== END 2024-03-16 15:58 | disposition home or self-care (01) ==
PROVIDERS: Emergency Provider Student in an Organized Health Care Education/Training Program; PCP Psychiatry & Neurology Sleep Medicine
DX: T15.02XA Foreign body in cornea, left eye, initial encounter (principal); H57.12 Ocular pain, left eye; W44.F9XA Other object of natural or organic material, entering into or through a natural orifice, initial encounter; Y93.89 Activity, other specified; Y92.9 Unspecified place or not applicable
CPT/HCPCS: 65220; 99283

== ENCOUNTER 2024-12-20 13:41 | Outpatient (CLI) | payer OTHER, SELFPAY ==
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
[2024-12-20 15:19] LABS: Hematocrit 53.8 % (42.0-52.0); Hemoglobin 18.0 g/dL (14.1-18.0); Immature Granulocytes % 0.1 %; Mean Corpuscular HGB Conc 33.5 g/dL (31.8-35.4); Mean Corpuscular Hemoglobin 32.0 pg (27.0-31.2); Mean Corpuscular Volume 95.6 fl (80-94); Nucleated Red Blood Cells % 0 %; Platelet Count 249 K/mm3 (142-424); Red Blood Count 5.63 M/mm3 (4.60-6.20); Red Cell Distribution Width-SD 49.7 fL; White Blood Count 6.9 K/mm3 (4.8-10.8)
[2024-12-20 15:39] LABS: Free T4 (Free Thyroxine) 1.61 ng/dl (0.78-2.19)
[2024-12-20 16:24] LABS: Alanine Aminotransferase 36 U/L (12-78); Albumin Level 4.7 g/dl (3.5-5.0); Albumin/Globulin Ratio 1.3 (1.1-1.8); Alkaline Phosphatase 86 U/L (38-126); Anion Gap 8.3 mEq/L (5-15); Aspartate Amino Transferase 36 U/L (17-59); Bilirubin,Total 0.7 mg/dl (0.2-1.3); Blood Urea Nitrogen 6 mg/dl (9-20); Calcium 9.7 mg/dl (8.4-10.2); Carbon Dioxide 25 mmol/L (22.0-30.0); Chloride 103 mmol/L (98-107); Creatinine,Serum 0.90 mg/dl (0.66-1.25); Estimated Glomerular Filt Rate 92 ml/min (>60); GFR (African American) 111 ML/MIN (>60); Globulin 3.7 g/dL (1.3-3.2); Glucose 60 mg/dl (74-100); Potassium 4.3 mmoL/L (3.5-5.1); Sodium 132 mmol/L (136-145); Total Protein,Serum 8.4 g/dl (6.3-8.2)
[2024-12-20 17:14] LABS: Thyroid Stimulating Hormone 1.69 uIU/mL (0.465-4.68)
--- OUTSIDE RECORDS SUMMARY | 2024-12-22 13:49 | XMS_ITS | Encounter Summary ---
Author Organization [facility] [place] [address] Care Team Providers Care Pharmacy Helper Name Role Phone Francisco Bill MD Unavailable [phone] Nonstaff, Referring Primary Care Provider Ramona goldman Encounter Details Date Type Department Care Team (Latest Contact Info) Description 11/01/2024 Travel Social History Tobacco Use Types Packs/Day Years [...] on file documented as of this encounter Functional Status * Is the person deaf or does he/she have serious difficulty hearing? Answer Date of Assessment Author No 05/06/2021 11:10 AM Naomi Shelby RN * Is the person blind or does he/she have serious difficulty seeing even when wearing glasses? Answer Date of Assessment Author No 05/06/2021 11:10 AM Naomi Shelby RN * Does this person have serious difficulty walking or climbing stairs? Answer Date of Assessment Author No 05/06/2021 11:10 AM Naomi Shelby RN * Does this person have difficulty dressing or bathing? Answer Date of Assessment Author No 05/06/2021 11:10 AM Naomi Shelby RN * Because of a physical, mental or emotional condition, does this person have difficulty doing errands alone such as visiting a doctor's office or shopping? Answer Date of Assessment Author No 05/06/2021 11:10 AM Naomi Shelby RN * Suicide Severity Rating Answer Date of Assessment Author Moderate Risk 11/01/2024 5:04 PM Baron Cat RN * [place] Suicide Severity Rating Scale (Q shift for moderate and high) Question Answer Date of Assessment Author 1. In the past month, have y ou wished you were or wished you could go to sleep and not wake up? 0 11/01/2024 5:04 PM Eddie Cat RN 2. In the past month, have y ou actually had any thoughts of killing yourself? (If no, skip to question 6) 0 11/01/2024 5:04 PM Eddie Cat RN 6. Have you ever done anythi ng, started to do anything, or prepared to do anything to end your life? 3 11/01/2024 5:04 PM Eddie Cat RN Was this within the past 3 months? 0 11/01/2024 5:04 PM Eddie Cat RN documented as of this encounter Mental Status * Because of a physical, mental or emotional condition, does this person have serious difficulty concentrating, remembering or making decisions? Answer Entry Date Author No 05/06/2021 11:10 AM Naomi Shelby RN documented in this encounter Plan of Treatment Not on file documented as of this encounter Goals Goal Patient Goal Type Associated Problems Recent Progress Patient-Stated? Author Eat better, exercise, reach an ideal body weight General No Shyann Kingsley RMA Stay Tobacco Free Lifestyle No Shyann Kingsley RMA documented as of this encounter Visit Diagnoses Not on filedocumented in this encounter Care Teams Pharmacy Helper Relationship Specialty Start Date End Date Francisco Bill MD [address] [place], [place] [id number] PCP - Pediatrics 10/10/09 Nonstaff, Referring PCP - General 04/04/11 documented as of this encounter
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
== END 2024-12-20 23:59 | disposition home or self-care (01) ==
LOC: LAB.DROPOF 12-22 13:42
PROVIDERS: PCP Family Medicine; Visit Provider Nurse Practitioner Acute Care
DX: F10.11 Alcohol abuse, in remission (principal); F20.0 Paranoid schizophrenia
CPT/HCPCS: 80053; 80320; 84439; 84443; 85025